=== PATIENT | female | born 1950 | race Caucasian/White ===

== ENCOUNTER 2017-09-23 20:13 | Inpatient (IN) ==
[2017-09-23] MEDS ORDERED: *HR* Heparin 10,000 UNIT/10 ML VIAL ONE ×2 (20:18→20:25)
[2017-09-23] MEDS ORDERED: Heparin 1,000 UNITS/500 mL 500 ML ONE (20:18)
[2017-09-23] MEDS ORDERED: 0.9 % Sodium Chloride 1,000 ML ONE ×2 (20:19→20:20)
[2017-09-23] MEDS ORDERED: *HR* Midazolam HCl 2 MG/2 ML VIAL ONE (20:19)
[2017-09-23] MEDS ORDERED: Nitroglycerin 1,000 MCG/10 ML VIAL IV ONE ×2 (20:19→20:25)
[2017-09-23] MEDS ORDERED: *HR* FentaNYL (PF) 100 MCG/2 ML VIAL ONE (20:19)
--- NOTE | 2017-09-23 21:25 | Invasive Diagnostic Lab Proc ---
Name: Baylee Vazquez Date of Study: 09/23/2017 Date: 1950 Ht: 64.2in Medical Record#: [id number] Age: 67 Wt: 189.60lb Gender: Female BSA: 1.92 Order #: [id number] BMI: 32.37 Physicians Procedure Physician: Juan R Christian DO Referring MD: Referring MD: Staff Name Position Time In Elver Arguello RN [employer] [place] 08:36 PM Richa Tinajero RT Scrub 08:36 PM Sites, Raiza RT (R) Monitor 08:36 PM Indications Indication STEMI Procedures Performed Procedure PRQ CARD REVASC OR 1 VSL L HRT ARTERY/VENTRICLE ANGIO Pre-Procedure Checklist Informed consent is complete signed and on chart. H&P is on chart. ID band is on and ID verified with patient. Patient NPO for procedure The procedure was described for the patient and questions were answered. Blood Pressure: 114/98 ECG is on chart. Rhythm: NSR Plan of Care Patient will tolerate the procedure without complications. Adequate level of comfort will be maintained. Hemodynamics will remain stable Patient will recover from procedure without complications. Respiratory function will be maintained. Cardiac rhythm will remain stable. Patient temperature will be maintained. Patient and/or family have verbalized understanding of the procedure. Patient Education Chief Complaint/Reason for Test: Cardiac Cath Developmental Category: Geriatric (65+ years) Developmentally Appropriate for Age: Yes Learning Barriers: None Education Needs: Procedure Education Method: Verbal Information Taught: Cardiac Cath Educational Evaluation: Able to repeat information Intravenous Access Time IV Size Location DC'd Fluid/Drip Rate Units RN 08:40 PM 20g 1 1/4" Patent On Arrival Rt Antecubital 0.9NaCl 25 ml/hr Elver Arguello RN 08:40 PM 20g 1 1/4" Patent On Arrival Rt Arm Elver Arguello RN Allergies codeine Vital Signs Time BP (mmHg) HR (bpm) O2 Sat. RR (bpm) LOC 08:37 PM 149 / 100 98 95 % 20 5 = Fully awake and oriented or at pre-proc level 08:42 PM / % 5 = Fully awake and oriented or at pre-proc level 08:41 PM 114 / 98 85 % 6 08:46 PM 120 / 98 85 98 % 15 08:52 PM 152 / 63 83 95 % 08:56 PM 144 / 73 91 96 % 17 09:01 PM 157 / 79 87 97 % 16 09:06 PM 144 / 67 87 96 % 9 Procedural Medications Time Medication Dose Units Method Given By 08:36 PM Oxygen 2 L/min nasal cannula Elver Arguello RN 08:44 PM Versed 2 mg Intravenous Elver Arguello RN 08:46 PM Lidocaine 2% 10 ml Subcutaneous Juan R Christian DO 08:57 PM Heparin 2000 units Intravenous Elver Arguello RN 09:01 PM Nitroglycerin 100 mcg Intracoronary Juan R Christian DO ASA Classification: Emergent Procedure: ASA score is assumed Zenaida Score Preprocedure Postprocedure Activity 2- Moves 4 extremities sustained head lift Activity 2- Moves 4 extremities sustained head lift Circulation 2- SBP +/= 20 points of pre-anesthetic level Circulation 2- SBP +/= 20 points of pre-anesthetic level Consciousness 2- Awake and alert oriented x 3 Consciousness 2- Awake and alert oriented x 3 O2 Saturation 2- Able to maintain O2 satruation of 92% on room air O2 Saturation 2- Able to maintain O2 satruation of 92% on room air Respiratory 2- Able to deep breathe and cough well Respiratory 2- Able to deep breathe and cough well Total Score 10 Total Score 10 Contrast Agent: Isovue Diagnostic Contrast: 100 ml Total Contrast: 100 ml Fluoro Dose: 425 mGy Activated Clotting Time Time Seconds to Clot 08:55 PM 164 Procedure Log Time Note Enter By 08:22 PM CathStat 08:35 PM Pt arrived to oil field laborer 2 at 20:35 tsites 08:35 PM Case Start 08:36 PM Elver Arguello RN Position: [place] Time in: 20:36 tsites 08:36 PM Richa Tinajero RT Position: Scrub Time in: 20:36 tsites 08:36 PM Raiza Marmolejo RT (R) Position: Monitor Time in: 20:36 tsites 08:36 PM Patient charges- Angio tray pack, Navilyst 3mm J, Pulse Oximetry and ACIST tubing and transducer tsites 08:36 PM Procedure start 20:36 tsites 08:36 PM Time: 20:36 Oxygen on at 2 L/min per nasal cannula by Elver Arguello RN tsites 08:40 PM Vitals capture started with the following parameters, Patient=Adult, Interval=5 min, Initial Mggulnwd=515 mmHg, Deflation Rate=5 mmHg, Cuff placed on Left Arm 08:41 PM HR=85 bpm, WPWO=651/98 mmhg, Resp=6 B/min 08:41 PM Hair removed from procedure site in procedure lab using clippers. Bilateral groin prepped with Chloraprep by Raiza Marmolejo (R),then patient was draped. Skin intact. tsites 08:42 PM Meet and greet completed tsites 08:42 PM Time: 20:42LOC: 5 = Fully awake and oriented or at pre-proc level tsites 08:42 PM Time: 20:42 Patient comfortable and pain free: Yes tsites 08:44 PM Time: 20:44 Oxygen on at 2 L/min per nasal cannula by Elver Arguello RN tsites 08:44 PM Clinical Presentation: STEMI or equivalent tsites 08:44 PM Time: 20:44 Versed 2 mg Intravenous Given by Elver Arguello RN tsites 08:44 PM Recorded ECG: HR=77 Condition=Condition 1 08:45 PM Pressure channel 1 zeroed. 08:46 PM HR=85 bpm, TBLT=107/98 mmhg, SpO2=98.0 %, Resp=15 B/min 08:46 PM Time out performed according to hospital policy tsites 08:46 PM Procedure start 20:46 tsites 08:46 PM Time: 20:46 10 ml Lidocaine 2% to right groin Subcutaneous Given by Juan R Christian DO tsites 08:46 PM Micro-Introducer Kit utilized for sheath placement tsites 08:50 PM Access obtained by percutaneous puncture. 4Fr 11cm Terumo [place] sheath placed in right Femoral vein. [id number] tsites 08:51 PM Access obtained by percutaneous puncture. 6Fr 10cm Terumo [place] sheath placed in right Femoral artery. [id number] tsites 08:52 PM HR=83 bpm, LXGY=210/63 mmhg, SpO2=95.0 % 08:52 PM 6Fr FR 4 catheter inserted over the wire C tsites 08:52 PM 0.035 145cm Navilyst 3mmJ wire [id number] tsites 08:52 PM Catheter selectively placed in left ventricle tsites 08:53 PM Recorded Pressure: LV, HR=93, Condition=Condition 1 (Left Ventricle) LV 117/6/11 08:53 PM Recorded Pressure: LV, Ao, HR=80, Condition=Condition 1 (Left Ventricle) LV 128/-7/15, (Aorta) Ao 109/58/85 08:53 PM Bolus angiogram of left Ventricle complete:hand injection tsites 08:53 PM RCA angiography performed in multiple views. tsites 08:54 PM Recorded Pressure: Ao, HR=85, Condition=Condition 1 (Aorta) Ao 132/83/104 08:54 PM ACT drawn tsites 08:54 PM Lesion found in Right PDA. Pre Stenosis: 55 Pre KAYCEE Flow: tsites 08:55 PM Lesion found in Proximal RCA. Pre Stenosis: 40 Pre KAYCEE Flow: tsites 08:55 PM Coronary Dominance: right tsites 08:55 PM wire reinserted catheter removed tsites 08:55 PM Inflation device was opened. tsites 08:55 PM 6Fr JL4 Runway guide catheter was used to cannulate the PCI vessel successfully. reused? No tsites 08:55 PM Wire removed tsites 08:55 PM At 20:55 the ACT was 164 seconds. tsites 08:56 PM Recorded Pressure: Ao, HR=91, Condition=Condition 1 (Aorta) Ao 131/74/98 08:56 PM LCA angiography performed in multiple views. tsites 08:56 PM HR=91 bpm, XTSG=788/73 mmhg, SpO2=96 %, Resp=17 B/min 08:57 PM Lesion found in 1st Marginal. Pre Stenosis: 90 Pre KAYCEE Flow: tsites 08:57 PM Circumflex, Obtuse Marginal, Left Posterior Descending, and Left Posterolateral Coronary Arteries with 90 % stenosis. If graft is supplying this area, 0 % stenosis tsites 08:57 PM Time: 20:57 Heparin 2000 units Intravenous Given by Elver Arguello RN tsites 08:57 PM Right Coronary, Right Posterior Descending Arteries with Right Posterolateral and Acute Marginal branches with 60 % stenosis. If graft is supplying this area, 0 % stenosis tsites 08:57 PM PCI Status Emergency tsites 08:58 PM PCI Indication: Immediate PCI for STEMI tsites 08:58 PM PCI lesion in 1st Marginal. tsites 08:58 PM .014 Choice Extra Support 300cm guide wire across target lesion- successful. reused? No tsites 08:58 PM 2.25mm x 16mm Synergy drug-eluting stent across target lesion- successful Lot #[id number] tsites 09: PM Stent deployed @ 15 shelli for 22 seconds tsites 09:01 PM HR=87 bpm, QNMK=758/79 mmhg, SpO2=97.0 %, Resp=16 B/min 09:01 PM Time: 21:01 Nitroglycerin 100 mcg Intracoronary Given by Juan R Christian DO tsites 09:01 PM Stent delivery system removed intact. tsites 09:03 PM Guide wire removed intact. tsites 09:03 PM Bolus angiogram of right Femoral complete: hand injection tsites 09:06 PM HR=87 bpm, WNCO=966/67 mmhg, SpO2=96.0 %, Resp=9 B/min 09:06 PM Procedure completed at 21:06 tsites 09:07 PM Sign out completed: Radiation Dose 425 mGy Fluoro Time: 2.7 Isovue 370 - 200ml contrast 100 ml given by Juan R Christian DO. Complications: NoneCardiac Rehab Consult needed: YesConfirmed administered medications: No tsites 09:07 PM Isovue 370 - 200ml,1 Bottle(s) used. tsites 09:07 PM Arterial sheath pulled, Mynx closure device used and was Successful S/N. tsites 09:07 PM Estimated Blood Loss: less than 20cc tsites 09:07 PM Post ECG NSR tsites 09:07 PM Post ECG NSR tsites 09:08 PM Post Blood Pressure 144/67 tsites 09:08 PM 21:08 Post Pulses Bilateral DP & PT 1+ tsites 09:08 PM Information taught Cardiac Cath, PCI, and Mynx tsites 09:08 PM Education needs Plan of Care, Procedure, and Responsibilities of Patient in Care tsites 09:08 PM Learning barriers :None tsites 09:08 PM Education Methods Verbal tsites 09:08 PM Education evaluation Able to repeat information tsites 09:08 PM Site status No bleeding/hematoma - Rt Groin as reported by Richa Tinajero RT at 21:08 tsites 09:11 PM Venous sheath pulled using manual compression and V+ Pad for 12 minutes by Richa Tinajero RT tsites 09:14 PM Site status No bleeding/hematoma - Rt Groin as reported by Richa Tinajero RT at 21:14 tsites 09:14 PM Opsite applied tsites 09:14 PM Report given to thomas EARLY Pt taken to ICU Room #12. 21:14 tsites 09:14 PM Plavix, Effient or Brilinta given Yes dc ed tsites 09:15 PM Delay to floor No tsites 09:15 PM Patient out of room: 21:15 tsites 09:15 PM Family placed in consult room. tsites Complications Complication None Hemodynamics Pressures Site Systolic/A Wave Diastolic/V Wave Mean LV 117 6 11 LV 128 -7 15 AO 109 58 85 AO 132 83 104 AO 131 74 98 Post Procedure Information Blood Pressure: 144/67 mmHg Rhythm: NSR Post procedural instructions were given Closure Device Time Device Success/Fail 09/23/2017 9:08:00 PM MynxGrip Successful Site Checks Time Location Status Staff Sheath In? Note 09:08 PM Rt Groin No bleeding/hematoma Richa Tinajero RT 09:14 PM Rt Groin No bleeding/hematoma Richa Tinajero RT venous Pulses Time Site Pre-Procedure Post-Procedure Note 09/23/2017 8:40:00 PM Bilateral DP 1+ PT non-palpable 9:08:00 PM Bilateral DP & PT 1+ Updated by Raiza Marmolejo RT (R) on 09/23/2017 9:18:30 PM Raiza Marmolejo RT electronically signed on 09/23/2017 9:19:01 PM with status of Final
--- NOTE | 2017-09-23 22:48 | Cardiology History & Physical ---
Date of Encounter: 09/24/17 Time of Encounter: 20:00 Assessment and Plan (1) STEMI (ST elevation myocardial infarction) Current Visit: Yes Status: Acute The assessment and plan as outlined above was discussed with the patient and/or family members who expressed understanding and agreement. All questions were answered. Pt continues to have chest pain, dynamic EKG changes, recommend emergent C poss, risks and benefits discussed, pt elects to proceed. Qualifiers: Involved coronary artery: left circumflex coronary artery Qualified Code(s) : I21.21 - ST elevation (STEMI) myocardial infarction involving left circumflex coronary artery (2) Tobacco abuse Current Visit: Yes Status: Chronic The assessment and plan as outlined above was discussed with the patient and/or family members who expressed understanding and agreement. All questions were answered. Pt is one pack a day smoker, discussed smoking cessation. (3) Hypothyroid Current Visit: Yes Status: Chronic The assessment and plan as outlined above was discussed with the patient and/or family members who expressed understanding and agreement. All questions were answered. on replacement, will check TSH, Free T4 Qualifiers: Hypothyroidism type: acquired Qualified Code(s): E03.9 - Hypothyroidism, unspecified (4) GERD (gastroesophageal reflux disease) Current Visit: Yes Status: Chronic The assessment and plan as outlined above was discussed with the patient and/or family members who expressed understanding and agreement. All questions were answered. Chest pain with GERD has resolved on PPI, pt reports symptoms of GERD much different than she is experiencing now. Qualifiers: Esophagitis presence: esophagitis presence not specified Qualified Code(s) : K21.9 - Gastro-esophageal reflux disease without esophagitis (5) Osteoarthritis (arthritis due to wear and tear of joints) Current Visit: Yes Status: Chronic The assessment and plan as outlined above was discussed with the patient and/or family members who expressed understanding and agreement. All questions were answered. Bilat hips and knees, on Naprosyn, will hold with ACS Qualifiers: Osteoarthritis location: knee Osteoarthritis type: primary Laterality: bilateral Qualified Code(s): M17.0 - Bilateral primary osteoarthritis of knee (6) Hypertension Current Visit: Yes Status: Chronic The assessment and plan as outlined above was discussed with the patient and/or family members who expressed understanding and agreement. All questions were answered. reports bp controlled as outpatient, elevated on presentation due to ongoing chest pain Qualifiers: Hypertension type: essential hypertension Qualified Code(s): I10 - Essential (primary) hypertension History of Present Illness HPI: Ms. Vazquez is a 67 year old female who presented to [place] ER complaining of chest pain. Pt brought to ER by her grandson. Pt reports mid sternal chest pain, starting on 09/22/2017 approximately two hours after shoveling snow. Initial pain 6/10, associated with diaphoresis, radiating into left shoulder, lasted twenty to thirty minutes, then resolved spontaneously. She was able to sleep that evening , without chest pain, however pain reoccurred at rest approximately 8 AM. She reports pain was not as severe, 4/10 at most severe, waxed and waned all day, however never completely resolved. She also had episodes of nausea and diaphoresis over the course of the day, with radiation of pain into left shoulder. Her family was finally able to convince her to go to the ER, where initial EKG revealed possible lateral infarct. Her pain had decreased from 4 to 1, but did not resolve with sl ntg, IV heparin. She was transferred emergently for C/Poss as primary tx for lateral STEMI. She has no previous cardiac history. Past Med Surg Social Fam HX - Past Medical History Medical history: arthritis, cancer, hypertension, myocardial infarction, thyroid disease Psychiatric history: anxiety, depression, PTSD - Past Surgical History Surgical History: angioplasty/stent, cancer surgery, cholecystectomy, herniorrhaphy, hysterectomy, orthopedic, other, sinus surgery - Social History Smoking Status: Current every day smoker Packs per day: 0.5 Smokeless Tobacco Status: No Alcohol use: none Drug use: none Medications and Allergies ALPRAZolam [Xanax 1 MG Tablet] 1 mg PO QID 03/17/16 [History] Levothyroxine [Levothyroxine Sodium] 150 mcg PO DAILY 03/17/16 [History] Sertraline [Zoloft] 150 mg PO DAILY 03/17/16 [History] Lisinopril/Hydrochlorothiazide [Zestoretic 20-12.5 mg Tablet] 2 tab PO DAILY 08/21 [History] Naproxen Sodium [Aleve] 220 mg PO BID PRN 04/17/16 [History] Omeprazole [PriLOSEC] 40 mg PO DAILY 04/17/16 [History] Oxybutynin Chloride [Ditropan Xl] 5 mg PO BID 04/17/16 [History] 3 Allergy/AdvReac Type Severity Reaction Status Date / Time codeine AdvReac Nausea Verified 09/23/17 19:24 All Systems Review: A 10-system review of systems was performed and is negative for pertinent findings except as documented above in the HPI. - Cardiovascular Cardiovascular: other (See HPI) - Respiratory Respiratory: cough, wheezing - Gastrointestinal Gastrointestinal: abdominal pain (epigastric burning after meals) - Musculoskeletal Musculoskeletal: other (Left shoulder pain) Physical Examination Vital Signs, Last 4 Hours Temp Pulse Resp BP Pulse Ox 09/23/17 22:17 86 16 139/92 93 09/23/17 21:56 84 14 133/89 93 09/23/17 21:43 81 09/23/17 21:26 98.1 F 83 16 134/79 94 General: Conversant, Other (mild distress with ongoing chest pain. ) HEENT: Atraumatic, Normocephaly Neck: No JVD, Normal carotid pulses Cardiac: Reg Rate and Rhythm, Normal S1 and S2, No Murmur Lungs: Normal Breath Sounds, No Wheeze, Rales, Rhonchi Neuro: Alert and responsive, No focal deficits noted Abdomen: Soft, Non-Tender Skin: No rashes noted on visualized skin Musculoskeletal: No Chest Wall Tenderness Extremities: No Clubbing, No Cyanosis, No Edema, Normal Pulses Results - EKG Interpretation EKG results cardiology: personally reviewed (NSR, mild ST seg elevation in 1 and AVF)
[2017-09-24] MEDS: ALPRAZolam 1 MG TABLET PO SCH ×4 (01:44→19:53)
[2017-09-24] MEDS ORDERED: NON-FORMULARY MEDICATION 1 EACH EACH (Fluconazole [Diflucan] 150 MG) PO SCH (09:00)
[2017-09-24] MEDS ORDERED: NON-FORMULARY MEDICATION 1 EACH EACH (Oxybutynin Chloride [Ditropan Xl] 10 MG) PO SCH (09:00)
[2017-09-24] MEDS ORDERED: Aspirin 81 MG TAB.CHEW PO SCH (09:30)
[2017-09-24] MEDS ORDERED: *HR* Ticagrelor 90 MG TABLET PO SCH (10:00)
--- NOTE | 2017-09-24 10:43 | Cardiology Progress Note ---
Date of Encounter: 09/24/17 Time of Encounter: 10:15 Assessment and Plan (1) STEMI (ST elevation myocardial infarction) Current Visit: Yes Status: Acute Per Cardiology: Patient transferred from outside facility with acute STEMI and taken to catheter lab urgently. Outside trop negative. Underwent left heart catheterization Dr. Christian September 23, 2017 and received PTCA with drug-eluting stent to OM1 90% lesion. Has remaining proximal RCA 40% and right PDA 60% lesions. Chest pain-free. Echo pending. On aspirin, statin, Brilinta. We'll add low-dose beta girma. Has cardiac rehabilitation consult. Plan to transfer to floor today, possible discharge tomorrow. Qualifiers: Involved coronary artery: left circumflex coronary artery Qualified Code(s) : I21.21 - ST elevation (STEMI) myocardial infarction involving left circumflex coronary artery (2) Tobacco abuse Current Visit: Yes Status: Chronic Per Cardiology: Smoking cessation highly encouraged. I did spend 3-5 minutes daily providing counseling. Patient declined nicotine patch at this time. Discussion w patient/family: The assessment and plan as outlined above was discussed with the patient who expressed understanding and agreement. All questions were answered. Thank you for involving us in the care of your patient. Please call with any questions. Subjective Principal diagnosis: STEMI Interval history: Patient currently denies any chest pain, shortness of breath, palpitations. Denies any concerns from her right groin site. Objective Vital Signs, Last 4 Hours Temp Pulse Resp BP Pulse Ox 09/24/17 09:00 87 18 161/99 96 09/24/17 08:35 97.6 F 09/24/17 08:00 72 18 150/98 97 09/24/17 07:55 66 09/24/17 07:00 66 18 147/93 95 General: Conversant, No Apparent Distress HEENT: Atraumatic, Normocephaly, Mucus Membranes Moist Neck: No JVD, Normal carotid pulses Cardiac: Reg Rate and Rhythm, Normal S1 and S2, No Murmur Lungs: Normal Breath Sounds, No Wheeze, Rales, Rhonchi Neuro: Alert and responsive, No focal deficits noted Abdomen: Soft, Non-Tender Skin: No rashes noted on visualized skin, Other (Right groin site dry and intact , no hematoma, no ecchymosis, no bleeding, right DP and PT pulses 2+ palpable) Musculoskeletal: No Chest Wall Tenderness Extremities: No Clubbing, No Cyanosis, No Edema, Normal Pulses Results Laboratory Tests 08/04/16 09/23/17 09/23/17 09:40 19:48 19:48 WBC 8.7 Hgb 15.0 Hct 43.0 Plt Count 186 INR 0.9 Creatinine Est GFR (Non-Af Amer) Troponin I LDL Cholesterol, Calc 116 H TSH 3.465 09/23/17 09/23/17 19:48 19:48 WBC Hgb Hct Plt Count INR Creatinine 1.07 Est GFR (Non-Af Amer) 51 L Troponin I < 0.03 LDL Cholesterol, Calc TSH Active Medications Alprazolam (Xanax) 1 mg PO TID COUNTS INCLUDE 234 BEDS AT THE [facility] PRN Reason: Protocol Stop: 03/26/18 01:46 Last Admin: 09/24/17 07:49 Dose: 1 mg Aspirin (Aspirin) 81 mg PO DAILY COUNTS INCLUDE 234 BEDS AT THE [facility] Stop: 03/26/18 09:31 Last Admin: 09/24/17 09:48 Dose: 81 mg Levothyroxine Sodium (Levothyroxine Sodium) 137 mcg PO DAILY@0630 [facility] Stop: 03/26/18 06:31 Last Admin: 09/24/17 05:59 Dose: 137 mcg Omeprazole (Prilosec) 20 mg PO DAILY COUNTS INCLUDE 234 BEDS AT THE [facility] PRN Reason: Protocol Stop: 03/26/18 09:01 Last Admin: 09/24/17 07:49 Dose: 20 mg Rosuvastatin Calcium (Crestor) 20 mg PO HS COUNTS INCLUDE 234 BEDS AT THE [facility] Stop: 03/26/18 21:01 Sertraline HCl (Zoloft) 100 mg PO DAILY [facility] Stop: 03/26/18 09:01 Last Admin: 09/24/17 07:49 Dose: 100 mg Ticagrelor (Brilinta) 90 mg PO BID [facility] Stop: 03/26/18 10:01 Last Admin: 09/24/17 09:48 Dose: 90 mg - Imaging and Cardiology Echo: pending Cardiac cath: report reviewed - EKG Interpretation EKG results cardiology: other (SR 70's)
[2017-09-24] MEDS: *HR* Ticagrelor 90 MG TABLET PO SCH (19:54)
[2017-09-25 04:37] LABS: Basophils % 0.3 %; Eosinophils # 0.2 K/mcL (0.0-0.6); Eosinophils % 2.3 %; Hematocrit 39.1 % (35.3-44.9); Immature Granulocytes % 0.4 % (0-4); Lymphocytes # 1.8 K/mcL (0.6-4.6); Lymphocytes % 20.3 %; Mean Corpuscular HGB Conc 33.2 g/dL (31.6-35.5); Mean Corpuscular Hemoglobin 28.9 pg (28.0-33.3); Mean Corpuscular Volume 86.9 fL (83.0-100.0); Mean Platelet Volume 10.1 fL (9.4-12.4); Monocytes # 0.4 K/mcL (0.0-1.3); Monocytes % 4.9 %; Neutrophils # 6.4 K/mcL (1.6-8.9); Platelet Count 154 K/mcL (140-400); Red Cell Distribution Width 13.2 % (11.5-14.5); Segmented Neutrophils % 71.8 %
[2017-09-25 05:03] LABS: BUN/Creatinine Ratio 16 (6-26); Blood Urea Nitrogen 16 mg/dL (8-23); Calcium 8.3 mg/dL (8.6-10.3); Carbon Dioxide 24 mEq/L (23-29); Chloride 105 mEq/L (98-107); Glucose 191 mg/dL (70-105); Osmolality,Calculated 288 (280-300); Potassium 3.6 mEq/L (3.5-5.1); Sodium 136 mEq/L (136-145); eGFR For African Americans > 60 (> 60); eGFR For Non-African Americans 57 (> 60)
[2017-09-25] MEDS: ALPRAZolam 1 MG TABLET PO SCH (07:40)
[2017-09-25] MEDS: *HR* Ticagrelor 90 MG TABLET PO SCH (07:40)
[2017-09-25 07:55] VITALS: BP 135/80
--- NOTE | 2017-09-25 07:57 | Discharge Summary ---
Date of Encounter: 09/25/17 Time of Encounter: 08:00 - Discharge Diagnosis (1) STEMI (ST elevation myocardial infarction) Priority: Primary Status: Acute Qualifiers: Involved coronary artery: left circumflex coronary artery Qualified Code(s) : I21.21 - ST elevation (STEMI) myocardial infarction involving left circumflex coronary artery (2) Tobacco abuse Priority: Secondary Status: Chronic - Discharge Medications Prescriptions: Metoprolol [Lopressor] 12.5 mg PO BID #60 tablet Nitroglycerin 0.4 mg SL PRN PRN #30 tab.subl PRN Reason: chest pain Rosuvastatin [Crestor] 20 mg PO HS #30 tablet Ticagrelor [Brilinta] 90 mg PO BID #60 tablet Home Medications: ALPRAZolam [Xanax 1 MG Tablet] 1 mg PO QID 03/17/16 [History] Levothyroxine [Levothyroxine Sodium] 150 mcg PO DAILY 03/17/16 [History] Sertraline [Zoloft] 150 mg PO DAILY 03/17/16 [History] Omeprazole [PriLOSEC] 40 mg PO DAILY 04/17/16 [History] Oxybutynin Chloride [Ditropan Xl] 5 mg PO BID 04/17/16 [History] Aspirin 81 mg PO DAILY tab.chew 09/25/17 [Rx] Metoprolol [Lopressor] 12.5 mg PO BID #60 tablet 09/25/17 [Rx] Nitroglycerin 0.4 mg SL PRN PRN #30 tab.subl 09/25/17 [Rx] Rosuvastatin [Crestor] 20 mg PO HS #30 tablet 09/25/17 [Rx] Ticagrelor [Brilinta] 90 mg PO BID #60 tablet 09/25/17 [Rx] Allergies/Adverse Reactions: 3 Allergy/AdvReac Type Severity Reaction Status Date / Time codeine AdvReac Nausea Verified 09/23/17 19:24 Procedures/tests Complete & Pending: Procedures Performed prior 72 hours Category Date Time Status CL Cardiac Catheterization [CL] Stat [employer] Person 09/23/17 20:18 Completed ECG 12 lead ECG [ECG] Routine Y 09/23/17 23:51 Completed ECG 12 lead ECG [ECG] Routine Y 09/24/17 09:18 Stop Req ECG 12 lead ECG [ECG] Routine Y 09/25/17 07:00 Stop Req ECG 12 lead ECG [ECG] Stat Y 09/24/17 09:18 Stop Req EV echocardiogram Routine Y 09/24/17 09:18 Completed Date of admission: 09/23/17 21:42 Consults: 09/24/17 09:18 Consult to Cardiac Rehabilitation-Phase1 [CONS] Routine Comment: Reason for Consult: AMI Call Completed: Yes Consult to Nurse Navigator [CONS] Routine Comment: Discharging clinician: Amor William Anticipated date of discharge: 09/25/17 - Patient Status Disposition: Home, Self-Care Condition: Fair Functional capacity at discharge: independent ambulation Overall status at discharge: patient is progressing back to baseline - Discharge Instructions Instructions: Myocardial Infarction (DC) Additional Instructions: RISK FACTORS: STOP SMOKING: If you smoke, STOP. Smoking or tobacco use significantly increases your risk of heart disease because nicotine causes the arteries to narrow or constrict. It also causes fats to stick to the artery. Your chances of having a heart attack are greatly increased if you continue to smoke. For more information, call the education line for smoking cessation 3-779-DTMJMWB EAT A LOW FAT/CHOLESTEROL/SODIUM DIET: This diet may help reduce your chances of having a heart attack. LIFTING: Avoid lifting anything more than 10 pounds for 5-7 days Prior to straining, laughing, sneezing and/or coughing, apply manual pressure directly over insertion site. ACTIVITY: You may walk or climb stairs as tolerated You can resume sexual activity as tolerated In general, you are encouraged to engage in a minimum of 30 minutes or more of moderate intensity physical activity, such as brisk walking, daily or at least 3 -4 times weekly BATHING Do not submerge the site into water (bath tub, hot tub, swimming pool) for 1 week. This can be a source for infection into the blood stream. You may shower after 24 hours SITE CARE: After 24 hours, you may remove the dressing and leave the site open to air. Keep the site clean and dry. Clean gently and pat dry. You can expect bruising and tenderness that gradually resolve within a week or two. Return to work as instructed per your physician Resume driving as instructed per physician Keep all scheduled follow up appointments Resume medications as instructed IMPORTANT: If prescribed a Platelet Aggregation Inhibitor such as, Plavix, Brilinta or Effient: Duration of therapy is minimum one year These medications are often used in combination with Aspirin in prevention of future heart attacks Never discontinue unless consult with your Man[employer]isher STROKE (CVA) Risk factors for a stroke are: Age, cigarette smoking, diabetes, excessive alcohol consumption, family history, high blood pressure, overweight, physical inactivity, prior stroke, heart attack, diagnosis of carotid artery stenosis or other artery disease. Warning signs: Sudden numbness or weakness of the face, arm or leg; especially on one side of the body, sudden confusion, trouble speaking or understanding, sudden trouble seeing in one or both eyes, sudden trouble walking, dizziness, loss of balance or coordination, sudden severe headache with no cause. Call 911 or go to the Emergency Room. CONGESTIVE HEART FAILURE: If you have been diagnosed with Congestive Heart Failure (CHF) and your symptoms return, make an appointment with your physician Weigh yourself daily. Notify your physician if you have a weight gain of two or more pounds in one day or five or more pounds in one week. If you experience any difficulty breathing, please call 911 BLEEDING: Although the risk of bleeding is minimal, it can happen. If you have any bleeding from the site, apply firm pressure above the puncture site for 10-15 minutes. If the bleeding does not stop, continue manual pressure and call 911 Contact your physician if: You develop a fever greater than 101 degrees Fahrenheit Your site becomes reddened or has any drainage You have an increase in pain or burning at the site or if a large knot forms at the site. If you experience chest pain, shortness of breath, dizziness, or extreme tiredness, stop the activity and rest. Please notify your physicians office if you experience any of these symptoms and they are not relieved by rest please call 911! - Diet and Activity Diet: low fat, low cholesterol, low salt diet - Hospital Course Hospital course: Ms. Vazquez is a 67 year old female transferred from outside facility with acute STEMI and taken to catheter lab urgently. Outside trop negative. Underwent left heart catheterization Dr. Christian September 23, 2017 and received PTCA with drug- eluting stent to OM1 90% lesion. Peak trop 5.47. Has remaining proximal RCA 40% and right PDA 60% lesions. CP free. EF on LHC 60%, echo pending, euvolemic on exam. Prepping for discharge home in stable condition. Education provided regarding post NV, post procedure, and medications. All questions answered. Patient aware to not discontinue aspirin and Brilinta for at least one year unless directed by cardiology. Education provided regarding nitroglycerin glycerin pills on how to utilize and when to call 911. All questions answered. Time spent discussing smoking cessation with patient: 3 to 10 minutes - Time Spent with Patient Total time spent providing and/or coordinating discharge services: Less than 30 minutes Physical Examination Laboratory Tests 09/23/17 09/24/17 09/25/17 19:48 11:06 04:19 Troponin I < 0.03 5.47 H* 2.72 H* Selected Entries 09/25/17 03:27 09/25/17 07:53 09/25/17 07:54 Temperature 97.8 F Pulse Rate 75 Respiratory Rate 20 Blood Pressure 135/80 O2 Sat by Pulse Oximetry 96 Oxygen Delivery Method Room Air General: Conversant, No Apparent Distress HEENT: Atraumatic, Normocephaly, Mucus Membranes Moist Neck: No JVD, Normal carotid pulses Cardiac: Reg Rate and Rhythm, Normal S1 and S2, No Murmur Lungs: Normal Breath Sounds, No Wheeze, Rales, Rhonchi Neuro: Alert and responsive, No focal deficits noted Abdomen: Soft, Non-Tender Skin: No rashes noted on visualized skin Musculoskeletal: No Chest Wall Tenderness Extremities: No Clubbing, No Cyanosis, No Edema, Normal Pulses - VTE Reasons for not Prescribing Prophylaxis: Treatment not Indicated - Low risk for VTE
[2017-09-25] MEDS ORDERED: Aspirin 81 MG TAB.CHEW PO SCH (09:00)
--- NOTE | 2017-09-25 10:16 | Electrocardiograph Report ---
[place] [id number] Test Date: 2017-09-23 Pat Name: Baylee Vazquez Department: 109 Room: 12 Gender: F Debrander: JOHANNA : 1950 Requested By: Juan R Christian Order Number: [id number] [place] MD: Shelton Rosas DO Measurements Intervals [place] Rate: 85 P: 47 OR: 145 QRS: 17 QRSD: 81 T: 63 QT: 379 QTc: 421 Interpretive Statements SINUS RHYTHM LOW QRS VOLTAGE IN PRECORDIAL LEADS Electronically Signed On 09-25-2017 10:14:50 EST by Shelton Rosas DO
== END 2017-09-25 10:54 | disposition home or self-care (01) | DRG 247 ==
LOC: ICNU 21:42
PROVIDERS: ADMIT Internal Medicine Cardiovascular Disease; ATTEND Internal Medicine Cardiovascular Disease